=== PATIENT | female | born 1965 | race African-American/Black ===

== ENCOUNTER 2021-10-21 20:42 | Observation (INO) ==
[2021-10-21] MEDS ORDERED: Isovue-370 500 ML BOTTLE IVP ONE (21:37)
[2021-10-21 22:41] LABS: Potassium 6.2 mEq/L (3.5-5.1)
[2021-10-21] MEDS ORDERED: 0.9 % Sodium Chloride 1,000 ML IVC ONE (22:59)
[2021-10-21] MEDS ORDERED: Albuterol 2.5 MG/3 ML NEBULIZER IH ONE (23:04)
[2021-10-21] MEDS ORDERED: SODIUM ZIRCONIUM CYCLOSILICATE 5 GM POWD.PACK PO SCH (23:15)
[2021-10-21 23:21] LABS: Basophils # 0.1 K/mcL (0.0-0.2); Basophils % 0.4 %; Eosinophils # 0.2 K/mcL (0.0-0.6); Eosinophils % 1.8 %; Hematocrit 31.4 % (35.3-44.9); Immature Granulocytes % 0.2 % (0-4); Lymphocytes # 2.7 K/mcL (0.6-4.6); Lymphocytes % 21.6 %; Mean Corpuscular HGB Conc 31.8 g/dL (31.6-35.5); Mean Corpuscular Hemoglobin 29.6 pg (28.0-33.3); Mean Corpuscular Volume 92.9 fL (83.0-100.0); Mean Platelet Volume 10.7 fL (9.4-12.4); Monocytes # 0.8 K/mcL (0.0-1.3); Monocytes % 6.4 %; Neutrophils # 8.6 K/mcL (1.6-8.9); Platelet Count 259 K/mcL (140-400); Red Blood Count 3.38 M/mcL (3.82-4.97); Red Cell Distribution Width 12.6 % (11.5-14.5); Segmented Neutrophils % 69.6 %; White Blood Count 12.4 K/mcL (4.3-11.1)
[2021-10-21 23:38] LABS: Calcium 9.1 mg/dL (8.6-10.3); Potassium 5.4 mEq/L (3.5-5.1)
[2021-10-22] MEDS ORDERED: cefTRIAXone 1,000 MG in Water for inj. (sterile) 10 ML IVP ONE (00:34)
[2021-10-22 01:04] LABS: Bacteria,Urine Few per hpf (None-Few); Bilirubin,Urine Negative (Negative); Blood,Urine Trace (Negative); Clarity,Urine Clear (Clear); Color,Urine Colorless (Yellow); Glucose,Urine (UA) Normal (Normal); Ketones,Urine Negative (Negative); Leukocyte Esterase,Urine Large (Negative); Nitrite,Urine Negative (Negative); Protein,Urine 100 mg/dL (Neg-Trace); Squamous Epithelial Cell,Urine Moderate per hpf (None-Few); Urobilinogen,Urine Normal (Normal); WBC,Urine 50-100 per hpf (0-3)
[2021-10-22] MEDS ORDERED: Melatonin 3 MG TABLET PO PRN (03:17)
[2021-10-22] MEDS ORDERED: Naloxone 0.4 MG/ML INJ IVP PRN (03:17)
[2021-10-22] MEDS ORDERED: 0.9 % Sodium Chloride 1,000 ML IVC SCH (03:30)
[2021-10-22] MEDS: amLODIPine 5 MG TABLET PO SCH ×2 (03:37→09:20)
[2021-10-22] MEDS: Ampicillin/Sulbactam 3,000 MG in 0.9 % Sodium Chloride Mini Bag 100 ML IVPB SCH ×3 (05:12→17:43)
[2021-10-22 06:10] LABS: Hematocrit 31.8 % (35.3-44.9); Hemoglobin 10.5 g/dL (11.5-15.4); Immature Granulocytes % 0.5 % (0-4); Lymphocytes % 15.4 %; Mean Corpuscular Hemoglobin 30.1 pg (28.0-33.3); Mean Corpuscular Volume 91.1 fL (83.0-100.0); Mean Platelet Volume 10.6 fL (9.4-12.4); Platelet Count 249 K/mcL (140-400); Red Blood Count 3.49 M/mcL (3.82-4.97); Red Cell Distribution Width 12.7 % (11.5-14.5); Segmented Neutrophils % 77.7 %; White Blood Count 14.7 K/mcL (4.3-11.1)
[2021-10-22 06:11] LABS: Basophils # 0.1 K/mcL (0.0-0.2); Basophils % 0.4 %; Eosinophils # 0.1 K/mcL (0.0-0.6); Lymphocytes # 2.3 K/mcL (0.6-4.6); Monocytes # 0.7 K/mcL (0.0-1.3); Neutrophils # 11.4 K/mcL (1.6-8.9)
[2021-10-22 06:20] LABS: Estimated Average Glucose 169 mg/dl; Hemoglobin A1C 7.5 %
[2021-10-22 07:02] LABS: % Iron Saturation 8 % (15-50); Ferritin 46 ng/mL (10-120); Iron 30 mcg/dL (50-170); Transferrin 275 mg/dL (203-362)
[2021-10-22 07:08] LABS: Folate 14.3 ng/mL (3.0-16.0)
[2021-10-22 07:17] LABS: Albumin 3.8 g/dL (3.5-5.7); Albumin/Globulin Ratio 1.2 (1.1-2.2); Bilirubin,Total 0.3 mg/dL (0.3-1.0); Chol/HDL Ratio 4.6 (0-4.9); Globulin 3.2 g/dL (2.4-3.5); Magnesium 1.9 mg/dL (1.6-2.6); Phosphorous 3.4 mg/dL (2.7-4.5); Potassium 5.4 mEq/L (3.5-5.1)
[2021-10-22] MEDS ORDERED: Dextrose 4 GM Chewable Tablets PO PRN ×2 (09:04)
[2021-10-22] MEDS ORDERED: *HR* Dextrose 50 % in Water (Syg) 50 ML SYRINGE IVP PRN (09:04)
[2021-10-22] MEDS ORDERED: D5% in Water 1,000 ML IVC PRN (09:04)
[2021-10-22] MEDS ORDERED: SODIUM ZIRCONIUM CYCLOSILICATE 5 GM POWD.PACK PO ONE (09:27)
[2021-10-22] MEDS ORDERED: Acetaminophen 325 MG TABLET PO PRN (09:50)
[2021-10-22] MEDS: Insulin LISPRO 300 UNITS/3 ML VIAL SUBQ SCH ×2 (11:54→17:43)
[2021-10-22] MEDS ORDERED: Insulin LISPRO 300 UNITS/3 ML VIAL SUBQ SCH (21:00)
[2021-10-22] MEDS: Erythromycin OPTH Oint RIGHT EYE SCH (21:21)
[2021-10-22] MEDS: Dorzolamide/Timolol 1 DROP BOTH EYES SCH (22:05)
[2021-10-23] MEDS: Ampicillin/Sulbactam 3,000 MG in 0.9 % Sodium Chloride Mini Bag 100 ML IVPB SCH ×2 (00:09→05:03)
[2021-10-23 03:17] LABS: Hemoglobin 9.2 g/dL (11.5-15.4); Mean Corpuscular HGB Conc 31.7 g/dL (31.6-35.5); Mean Corpuscular Hemoglobin 29.3 pg (28.0-33.3); Mean Corpuscular Volume 92.4 fL (83.0-100.0); Mean Platelet Volume 10.9 fL (9.4-12.4); Platelet Count 227 K/mcL (140-400); Red Blood Count 3.14 M/mcL (3.82-4.97); Red Cell Distribution Width 12.6 % (11.5-14.5); White Blood Count 10.7 K/mcL (4.3-11.1)
[2021-10-23 03:37] LABS: Calcium 8.9 mg/dL (8.6-10.3); Potassium 5.2 mEq/L (3.5-5.1)
[2021-10-23] MEDS: Erythromycin OPTH Oint RIGHT EYE SCH ×2 (07:31→12:01)
[2021-10-23] MEDS: Insulin LISPRO 300 UNITS/3 ML VIAL SUBQ SCH ×2 (07:31→12:01)
[2021-10-23] MEDS: amLODIPine 5 MG TABLET PO SCH (07:31)
[2021-10-23] MEDS: Dorzolamide/Timolol 1 DROP BOTH EYES SCH (09:01)
[2021-10-23 11:50] VITALS: BP 179/80; PULSE 63; TEMP 98.5; O2SAT 98
== END 2021-10-23 13:23 | disposition home or self-care (01) ==
LOC: 2ANU 20:42 → EMEROOARM 20:42 → 2ANU 10-22 02:40
PROVIDERS: ADMIT Internal Medicine; ATTEND Internal Medicine